=== PATIENT | male | born 1955 | race Caucasian/White ===

== ENCOUNTER → 2016-08-11 | Outpatient (REF) ==
[~2016-08-11] MED LIST: ADALAT; ADIPEX-P37.5 MG PO; ADVIL200 MG; ASPIRIN 32325 MG/TAB PO; EXCEDRIN TENSIO1 CAP PO; FLAGYL500 MG PO; LOPRESSOR 225 MG/TAB PO; LOPRESSOR 550 MG/TAB; MOBIC 7.5MG7.5 MG PO; NEXIUM 20MG20 MG PO; NEXIUM 40MG40 MG PO; OXECTA7.5 MG; PERCOCET 325 MG1 TAB PO; POTASSIUM GLUC500 MG PO; TYLENOL 500MG500 MG PO; ULTRAM 50MG TAB50 MG PO
[2016-08-11 17:22] LABS: THYROID STIMULATING HORMONE 2.59 uIU/mL (0.465-4.680)
[2016-08-11 18:31] LABS: PSA-TOTAL 0.36 ng/mL (0-4)
== END ==
LOC: ZLAB.WCH 16:19
PROVIDERS: Internal Medicine
DX: Z01.89 Encounter for other specified special examinations (principal)
CPT/HCPCS: G0103

== ENCOUNTER → 2016-08-20 | Outpatient (CLI) | payer OTHER, BC ==
[2016-08-20 17:01] LABS: PH 6 (5-8); SQUAMOUS EPITHELIAL None Seen /hpf; URINE APPEARANCE Clear; URINE BACTERIA None Seen /hpf; URINE BILIRUBIN Negative (NEGATIVE); URINE BLOOD Negative (NEGATIVE); URINE COLOR Straw; URINE GLUCOSE Negative (NEGATIVE); URINE KETONE Negative (NEGATIVE); URINE RBC 0-2 /hpf; URINE UROBILINOGEN Negative (NEGATIVE); URINE WBC 0-2 /hpf
== END ==
LOC: COL.LAB 14:12
PROVIDERS: Orthopaedic Surgery
DX: Z01.812 Encounter for preprocedural laboratory examination (principal); M25.561 Pain in right knee

== ENCOUNTER → 2018-03-08 | Outpatient (REF) ==
[2018-03-08 16:42] LABS: PSA-TOTAL 0.37 ng/mL (0-4)
[2018-03-08 16:52] LABS: THYROID STIMULATING HORMONE 1.74 uIU/mL (0.465-4.680)
== END ==
LOC: ZLAB.WCH 15:53
PROVIDERS: Internal Medicine
DX: Z12.5 Encounter for screening for malignant neoplasm of prostate (principal)
CPT/HCPCS: G0103

== ENCOUNTER 2019-04-25 19:08 | Emergency (ER) | payer BC ==
[~2019-04-25] VITALS: Ht 193 cm; Wt 104.5 kg
[2019-04-25 19:15] VITALS: TEMP 98
[2019-04-25] MEDS ORDERED: PERCOCET 325 MG1 TA3 PO ×2 (20:52→21:03)
[2019-04-25 21:09] VITALS: BP 135/86; PULSE 70
== END 2019-04-25 21:11 | disposition home or self-care (01) ==
LOC: COL.ER 19:08
DX: M54.2 Cervicalgia (principal); Z79.82 Long term (current) use of aspirin; W19.XXXA Unspecified fall, initial encounter

== ENCOUNTER → 2019-10-02 | Outpatient (CLI) | payer BC ==
[~2019-10-02] MED LIST changes: +PERCOCET 325 MG1 TA3 PO
== END ==
LOC: COL.RAD 15:01
DX: Z01.812 Encounter for preprocedural laboratory examination (principal); K76.0 Fatty (change of) liver, not elsewhere classified
CPT/HCPCS: Q9967